=== PATIENT | male | born 2000 | race Caucasian/White ===

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

== ENCOUNTER 2020-04-25 11:08 | Emergency (ER) | payer OTHER ==
[~2020-04-25] VITALS: Ht 175.3 cm; Wt 75.3 kg
[2020-04-25 11:20] VITALS: Ht 175.3 cm; Wt 75.3 kg
[2020-04-25 14:46] VITALS: BP 135/83
== END 2020-04-25 14:46 | disposition home or self-care (01) ==
LOC: ED 11:08
DX: M79.671 Pain in right foot (principal); F12.10 Cannabis abuse, uncomplicated